=== PATIENT | female | born 1955 | race Caucasian/White ===

== ENCOUNTER 2016-09-12 04:20 | Inpatient (IN) | payer BC ==
[2016-09-11 16:01] LABS: BLOOD UREA NITROGEN 27 mg/dL (7-18)
[2016-09-11 16:04] LABS: ASPARTATE AMINO TRANSFERASE 16 U/L (15-37)
[~2016-09-12] VITALS: Ht 154.9 cm; Wt 76.5 kg
[~2016-09-12 04:20] MED LIST: ACET-76 PO; AMIT10TA PO; AMLO5TAB4 PO; ASPI-496 PO; CHOL200024 PO; CLOP75TA22 PO; HYDR25TA6 PO; ISOS60TA36 PO; LISI-170 PO; METF10002 PO; METO25TA35 PO; ROSU40TA PO
[2016-09-12] MEDS ORDERED: CHLORHEXIDINE MOUTHWASH 15 ML UDC MM SCH (04:30)
[2016-09-12] MEDS ORDERED: DO NOT GIVE XX SCH (04:30)
[2016-09-12 04:45] VITALS: BP_SYST 114; BP_SYST 117; BP_DIAS 75; BP_DIAS 85
[2016-09-12] MEDS ORDERED: METOPROLOL TARTRATE 25 MG TABLET PO ONE (05:00)
[2016-09-12 05:23] VITALS: BP_SYST 114; BP_SYST 117; BP_DIAS 75; BP_DIAS 85
[2016-09-12] MEDS ORDERED: INSULIN ASPART 100 UNITS/ML, PEN SQ-INSULIN SCH (06:00)
[2016-09-12] MEDS ORDERED: MIDAZOLAM 10MG/2 ML ONE (06:38)
[2016-09-12] MEDS ORDERED: FENTANYL PF 1000 MCG/20ML ONE (06:38)
[2016-09-12 06:46] VITALS: BP 98/63
[2016-09-12] MEDS ORDERED: CEFUROXIME 1.5 GM in SODIUM CHLORIDE 0.9% 50 ML IVPB PRN (07:30)
[2016-09-12] MEDS ORDERED: ALBUMIN HUMAN 5% 500 ML IV ONE (07:30)
[2016-09-12] MEDS ORDERED: POTASSIUM CHLORIDE 80 MEQ, SODIUM BICARBONATE 8.4% 10 MEQ, MAGNESIUM SULFATE 0.5 GM, LI... IV PRN (07:30)
[2016-09-12] MEDS ORDERED: PHENYLEPHRINE 10 MG in SODIUM CHLORIDE 0.9% 249 ML IV PRN ×2 (07:30→12:34)
[2016-09-12] MEDS ORDERED: REGULAR INSULIN 62.5 UNITS in SODIUM CHLORIDE 0.9% 249.375 ML IV PRN ×2 (07:30→12:34)
[2016-09-12] MEDS ORDERED: MANNITOL PMX 20% 500 ML IVPB PRN (07:30)
[2016-09-12] MEDS ORDERED: DEXMEDETOMIDINE 200 MCG in SODIUM CHLORIDE 0.9% 48 ML IV SCH (07:30)
[2016-09-12] MEDS ORDERED: EPINEPHRINE 2 MG in SODIUM CHLORIDE 0.9% 248 ML IV SCH (07:30)
[2016-09-12] MEDS ORDERED: VANCOMYCIN 1,100 MG in SODIUM CHLORIDE 0.9% 250 ML IV PRN (07:30)
[2016-09-12] MEDS ORDERED: PROPOFOL 10 MG/ML, 20ML ONE (08:12)
[2016-09-12] MEDS ORDERED: ROCURONIUM 10 MG/ML ONE (08:12)
[2016-09-12] MEDS ORDERED: MUPIROCIN OINT 2%, 22GM TP SCH (09:00)
[2016-09-12] MEDS: SODIUM CHLORIDE FLUSH 10ML SYR IVF SCH ×3 (09:00→21:13)
[2016-09-12] MEDS ORDERED: FENTANYL PF 250 MCG/5ML ONE ×2 (09:16→09:30)
[2016-09-12] MEDS ORDERED: SODIUM CHLORIDE 0.9% IVPB ONE (12:00)
[2016-09-12] MEDS ORDERED: DESMOPRESSIN IVPB ONE (12:00)
[2016-09-12] MEDS ORDERED: DOPAMINE 400 MG in SODIUM CHLORIDE 0.9% 240 ML IV PRN (12:34)
[2016-09-12] MEDS ORDERED: SODIUM CHLORIDE 0.9% 1,000 ML IV ONE (12:34)
[2016-09-12] MEDS ORDERED: NITROGLYCERIN/D5W PMX 250 ML IV PRN (12:34)
[2016-09-12] MEDS ORDERED: DEXMEDETOMIDINE 200 MCG in SODIUM CHLORIDE 0.9% 48 ML IV PRN (12:34)
[2016-09-12] MEDS ORDERED: SODIUM CHLORIDE 0.9% 1,000 ML IV PRN (12:34)
[2016-09-12] MEDS ORDERED: BISACODYL 5 MG EC TABLET PO PRN (13:00)
[2016-09-12] MEDS ORDERED: ACETAMINOPHEN 325 MG TABLET PO PRN (13:00)
[2016-09-12] MEDS ORDERED: GLUCAGON 1 MG IM PRN (13:00)
[2016-09-12] MEDS ORDERED: MIDAZOLAM 1 MG/ML, 5ML IVPush PRN (13:00)
[2016-09-12] MEDS ORDERED: BISACODYL 10 MG SUPP PR PRN (13:00)
[2016-09-12] MEDS ORDERED: DEXTROSE 50%, 50ML SYRINGE IVPush PRN (13:00)
[2016-09-12] MEDS ORDERED: VANCOMYCIN 1,100 MG in SODIUM CHLORIDE 0.9% 250 ML IVPB SCH (13:00)
[2016-09-12] MEDS ORDERED: MEPERIDINE/PF 25MG/0.5ML IVPush PRN (13:00)
[2016-09-12] MEDS ORDERED: LACTATED RINGERS 500 ML IVBOLUS PRN (13:00)
[2016-09-12] MEDS: KSCALE TO 4.5 IV SCH ×2 (13:00→19:00)
[2016-09-12] MEDS ORDERED: PROCHLORPERAZINE 5 MG/ML, 2ML IVPush PRN (13:00)
[2016-09-12] MEDS ORDERED: ACETAMINOPHEN 650 MG SUPP PR PRN (13:00)
[2016-09-12] MEDS ORDERED: SODIUM BICARB 8.4%, 50ML SYRINGE IV PRN (13:00)
[2016-09-12] MEDS ORDERED: morphine SULFATE 10 MG/ML, 1ML IVPush PRN (13:00)
[2016-09-12] MEDS ORDERED: CEFUROXIME 1.5 GM in SODIUM CHLORIDE 0.9% 50 ML IVPB SCH (13:00)
[2016-09-12] MEDS ORDERED: DEXTROSE 4 GM TAB.CHEW PO PRN (13:00)
[2016-09-12] MEDS ORDERED: SODIUM BICARB 8.4%, 50ML SYRINGE ONE (13:03)
[2016-09-12] MEDS ORDERED: PROTAMINE SULFATE 10 MG/ML, 25ML ONE (13:03)
[2016-09-12] MEDS ORDERED: AMINOCAPROIC ACID 250 MG/ML, 20ML ONE (13:04)
[2016-09-12] MEDS ORDERED: SODIUM BICARBONATE 4.2%, 5ML ONE (13:04)
[2016-09-12] MEDS ORDERED: HEPARIN 1,000 UNITS/ML, 30ML ONE (13:04)
[2016-09-12] MEDS ORDERED: CALCIUM CHLORIDE 10%, 10ML SYR ONE (13:04)
[2016-09-12] MEDS ORDERED: ALBUMIN HUMAN 25% 50 ML ONE (13:04)
[2016-09-12] MEDS ORDERED: HEPARIN 1,000 UNITS/ML, 10ML ONE (13:04)
[2016-09-12 13:07] LABS: ABG COLLECTION SITE ARTERIAL LINE
[2016-09-12] MEDS ORDERED: PAPAVERINE 30 MG/ML, 2ML ONE (13:08)
[2016-09-12] MEDS ORDERED: LIDOCAINE 2% 100MG/5ML SYRINGE ONE (13:08)
[2016-09-12] MEDS ORDERED: methylPREDNISolone SOD SUCC 125 MG/2 ML ONE (13:08)
[2016-09-12] MEDS ORDERED: POTASSIUM CHLORIDE PMX 100 ML IV ONE (13:30)
[2016-09-12] MEDS: MAGNESIUM SULFATE 1 GM in SODIUM CHLORIDE 0.9% 50 ML IVPB SCH (13:36)
[2016-09-12] MEDS ORDERED: SODIUM CHLORIDE 0.9% 1,000ML IVBOLUS PRN (18:00)
[2016-09-12] MEDS ORDERED: ONDANSETRON 2MG/ML, 2ML IVPush ONE (18:30)
[2016-09-12] MEDS: VANCOMYCIN 1,100 MG in SODIUM CHLORIDE 0.9% 250 ML IVPB SCH (19:32)
[2016-09-12] MEDS: OXYcodone IR 5MG TABLET PO PRN (19:32)
[2016-09-12] MEDS: ONDANSETRON 2MG/ML, 2ML IVPush PRN (19:33)
[2016-09-12] MEDS: MUPIROCIN OINT 2%, 22GM NAS SCH (19:39)
[2016-09-12] MEDS: CEFUROXIME 1.5 GM in SODIUM CHLORIDE 0.9% 50 ML IVPB SCH (20:30)
[2016-09-12] MEDS: INSULIN ASPART 100 UNITS/ML, PEN SQ-INSULIN PRN (21:11)
[2016-09-12] MEDS: DOCUSATE 100 MG CAPSULE PO SCH (21:15)
[2016-09-13] MEDS: KSCALE TO 4.5 IV SCH ×4 (01:00→19:00)
[2016-09-13] MEDS: EPINEPHRINE 2 MG in SODIUM CHLORIDE 0.9% 248 ML IV PRN ×2 (02:02→10:15)
[2016-09-13] MEDS: OXYcodone IR 5MG TABLET PO PRN ×3 (02:40→18:01)
[2016-09-13] MEDS ORDERED: POTASSIUM CHLORIDE 30 MEQ in SODIUM CHLORIDE 0.9% 100 ML IV ONE (03:00)
[2016-09-13 05:11] LABS: ABG COLLECTION SITE NOT DOCUMENTED
[2016-09-13 05:46] LABS: BLOOD UREA NITROGEN 24 mg/dL (7-18)
[2016-09-13] MEDS ORDERED: POTASSIUM CHLORIDE PMX 100 ML IV ONE (07:00)
[2016-09-13] MEDS: ONDANSETRON 2MG/ML, 2ML IVPush PRN ×2 (08:15→13:33)
[2016-09-13] MEDS: CEFUROXIME 1.5 GM in SODIUM CHLORIDE 0.9% 50 ML IVPB SCH (08:18)
[2016-09-13] MEDS: SODIUM CHLORIDE FLUSH 10ML SYR IVF SCH ×4 (08:19→21:11)
[2016-09-13] MEDS: PANTOPRAZOLE 40 MG IV IVPush SCH (08:19)
[2016-09-13] MEDS: VANCOMYCIN 1,100 MG in SODIUM CHLORIDE 0.9% 250 ML IVPB SCH (08:19)
[2016-09-13] MEDS ORDERED: CALCIUM CHLORIDE 13.6 MEQ in SODIUM CHLORIDE 0.9% 100 ML IV ONE (10:00)
[2016-09-13] MEDS: INSULIN ASPART 100 UNITS/ML, PEN SQ-INSULIN PRN ×4 (10:21→14:20)
[2016-09-13] MEDS: DOCUSATE 100 MG CAPSULE PO SCH ×2 (12:54→21:11)
[2016-09-13] MEDS: MUPIROCIN OINT 2%, 22GM NAS SCH ×2 (12:54→21:11)
[2016-09-13] MEDS: ASPIRIN 81 MG TABLET EC PO SCH (12:54)
[2016-09-13] MEDS: CHLORHEXIDINE MOUTHWASH 15 ML UDC MM SCH (13:07)
[2016-09-13] MEDS: MAGNESIUM SULFATE 1 GM in SODIUM CHLORIDE 0.9% 50 ML IVPB SCH (13:08)
[2016-09-13] MEDS ORDERED: ALBUMIN HUMAN 5% 500 ML IV ONE (16:00)
[2016-09-13] MEDS: METOPROLOL TARTRATE 25 MG TABLET PO/NG SCH (21:00)
[2016-09-14] MEDS: KSCALE TO 4.5 IV SCH ×2 (01:00→07:00)
[2016-09-14] MEDS: CHLORHEXIDINE MOUTHWASH 15 ML UDC MM SCH ×2 (01:00→13:08)
[2016-09-14 04:18] LABS: ABG COLLECTION SITE RIGHT BRACHIAL
[2016-09-14] MEDS: HYDROcodone/APAP 10/325 MG TABLET PO PRN ×3 (04:31→20:30)
[2016-09-14 05:04] LABS: BLOOD UREA NITROGEN 24 mg/dL (7-18)
[2016-09-14] MEDS: ONDANSETRON 2MG/ML, 2ML IVPush PRN ×2 (06:18→12:04)
[2016-09-14] MEDS ORDERED: MAGNESIUM HYDROXIDE 8%, 30ML UDC PO PRN (07:30)
[2016-09-14] MEDS: SODIUM CHLORIDE FLUSH 10ML SYR IVF SCH ×5 (08:34→20:33)
[2016-09-14] MEDS: ENOXAPARIN 40 MG/0.4 ML SQ SCH (08:35)
[2016-09-14] MEDS: ASPIRIN 81 MG TABLET EC PO SCH (08:35)
[2016-09-14] MEDS: METOPROLOL TARTRATE 25 MG TABLET PO/NG SCH ×2 (08:35→20:31)
[2016-09-14] MEDS: metFORMIN 500 MG TABLET PO SCH (08:35)
[2016-09-14] MEDS: MUPIROCIN OINT 2%, 22GM NAS SCH ×2 (08:35→20:33)
[2016-09-14] MEDS: DOCUSATE 100 MG CAPSULE PO SCH ×2 (08:35→20:31)
[2016-09-14] MEDS: PANTOPRAZOLE 40 MG IV IVPush SCH (08:35)
[2016-09-14] MEDS ORDERED: METOPROLOL TARTRATE 25 MG TABLET PO/NG SCH (09:00)
[2016-09-14 09:05] VITALS: BP 104/56
[2016-09-14 09:15] VITALS: BP 88/49
[2016-09-14 09:45] VITALS: BP 102/59
[2016-09-14] MEDS: INSULIN ASPART 100 UNITS/ML, PEN SQ-INSULIN SCH ×3 (12:04→20:48)
[2016-09-14 12:26] VITALS: BP 123/73
[2016-09-14] MEDS: MAGNESIUM SULFATE 1 GM in SODIUM CHLORIDE 0.9% 50 ML IVPB SCH (13:11)
[2016-09-14 20:21] VITALS: BP 120/83
[2016-09-14] MEDS: AMITRIPTYLINE 10 MG TABLET PO SCH (20:30)
[2016-09-14] MEDS: ATORVASTATIN 80 MG TABLET PO SCH (20:30)
[2016-09-14] MEDS ORDERED: DEXTROSE 4 GM TAB.CHEW PO PRN (21:00)
[2016-09-14] MEDS ORDERED: DEXTROSE 50%, 50ML SYRINGE IVPush PRN (21:00)
[2016-09-14] MEDS ORDERED: ACETAMINOPHEN 650 MG SUPP PR PRN (21:00)
[2016-09-14] MEDS ORDERED: SODIUM CHLORIDE FLUSH 10ML SYR IVF SCH (21:00)
[2016-09-14] MEDS ORDERED: BISACODYL 10 MG SUPP PR PRN (21:00)
[2016-09-14] MEDS ORDERED: GLUCAGON 1 MG IM PRN (21:00)
[2016-09-14] MEDS ORDERED: BISACODYL 5 MG EC TABLET PO PRN (21:00)
[2016-09-15 03:08] VITALS: BP 128/83
[2016-09-15] MEDS: HYDROcodone/APAP 10/325 MG TABLET PO PRN ×4 (03:23→19:21)
[2016-09-15] MEDS: CHLORHEXIDINE MOUTHWASH 15 ML UDC MM SCH (03:23)
[2016-09-15 03:58] LABS: BLOOD UREA NITROGEN 26 mg/dL (7-18)
[2016-09-15] MEDS: INSULIN ASPART 100 UNITS/ML, PEN SQ-INSULIN SCH ×2 (07:00→11:00)
[2016-09-15 08:00] VITALS: BP 126/77
[2016-09-15] MEDS: SODIUM CHLORIDE FLUSH 10ML SYR IVF SCH ×4 (09:00→19:17)
[2016-09-15] MEDS ORDERED: CLOPIDOGREL 75 MG TABLET PO SCH (09:00)
[2016-09-15] MEDS ORDERED: POTASSIUM CHLORIDE 10 MEQ TABLET.ER PO SCH (09:00)
[2016-09-15] MEDS: MUPIROCIN OINT 2%, 22GM NAS SCH ×2 (09:00→19:17)
[2016-09-15] MEDS: PANTOPRAZOLE 40 MG IV IVPush SCH (09:00)
[2016-09-15] MEDS ORDERED: FUROSEMIDE 20 MG/2 ML IV SCH (09:00)
[2016-09-15] MEDS: FUROSEMIDE 20 MG/2 ML IV SCH ×2 (09:27→17:25)
[2016-09-15] MEDS: METOPROLOL TARTRATE 25 MG TABLET PO/NG SCH ×2 (09:28→19:21)
[2016-09-15] MEDS: CLOPIDOGREL 75 MG TABLET PO SCH (09:28)
[2016-09-15] MEDS: POTASSIUM CHLORIDE 10 MEQ TABLET.ER PO SCH ×2 (09:28→17:25)
[2016-09-15] MEDS: metFORMIN 500 MG TABLET PO SCH (09:28)
[2016-09-15] MEDS: ENOXAPARIN 40 MG/0.4 ML SQ SCH (09:28)
[2016-09-15] MEDS: ASPIRIN 81 MG TABLET EC PO SCH (09:28)
[2016-09-15] MEDS: DOCUSATE 100 MG CAPSULE PO SCH ×2 (09:29→19:17)
[2016-09-15 13:17] VITALS: BP 127/83
[2016-09-15] MEDS ORDERED: HYDROcodone/APAP 5/325 TABLET ONE (15:53)
[2016-09-15 19:15] VITALS: BP 111/78
[2016-09-15] MEDS: ATORVASTATIN 80 MG TABLET PO SCH (19:21)
[2016-09-15] MEDS: AMITRIPTYLINE 10 MG TABLET PO SCH (19:21)
[2016-09-16 01:26] VITALS: BP 127/83
[2016-09-16] MEDS: HYDROcodone/APAP 10/325 MG TABLET PO PRN ×3 (01:32→11:07)
[2016-09-16 05:36] LABS: BLOOD UREA NITROGEN 22 mg/dL (7-18)
[2016-09-16] MEDS ORDERED: PANTOPROZOLE 40MG TABLET PO SCH (07:30)
[2016-09-16] MEDS ORDERED: DOCU-30 PO (07:42)
[2016-09-16] MEDS ORDERED: FURO-93 PO (07:42)
[2016-09-16] MEDS ORDERED: METO25TA35 PO/NG (07:42)
[2016-09-16] MEDS ORDERED: ASPI-621 PO (07:42)
[2016-09-16] MEDS ORDERED: POTA10TA5 PO (07:42)
[2016-09-16] MEDS ORDERED: LISI5TAB7 PO (07:45)
[2016-09-16 08:09] VITALS: BP 124/84
[2016-09-16] MEDS: POTASSIUM CHLORIDE 10 MEQ TABLET.ER PO SCH (08:10)
[2016-09-16] MEDS: metFORMIN 500 MG TABLET PO SCH (08:10)
[2016-09-16] MEDS: DOCUSATE 100 MG CAPSULE PO SCH (08:11)
[2016-09-16] MEDS: CLOPIDOGREL 75 MG TABLET PO SCH (08:11)
[2016-09-16] MEDS: ASPIRIN 81 MG TABLET EC PO SCH (08:11)
[2016-09-16] MEDS: FUROSEMIDE 20 MG/2 ML IV SCH (08:11)
[2016-09-16] MEDS: MUPIROCIN OINT 2%, 22GM NAS SCH (08:11)
[2016-09-16] MEDS: METOPROLOL TARTRATE 25 MG TABLET PO/NG SCH (08:11)
[2016-09-16] MEDS: SODIUM CHLORIDE FLUSH 10ML SYR IVF SCH (08:11)
[2016-09-16] MEDS: ENOXAPARIN 40 MG/0.4 ML SQ SCH (08:12)
[2016-09-16] MEDS ORDERED: LISINOPRIL 5 MG TABLET PO SCH (09:00)
[2016-09-16] MEDS ORDERED: HYDR-3240 PO (11:34)
== END 2016-09-16 12:15 | disposition home health service (06) | DRG 236 ==
LOC: 5SO 04:20 → CCU 08:08 → 5SO 09-14 12:09 → DCLOUNGE 09-16 11:25
PROVIDERS: ADMIT Thoracic Surgery (Cardiothoracic Vascular Surgery); ATTEND Thoracic Surgery (Cardiothoracic Vascular Surgery)
PROC: 02100Z9 Bypass Coronary Artery, One Artery from Left Internal Mammary, Open Approach (ICD-10-PCS; 2016-09-12)
PROC: 06BQ4ZZ Excision of Left Saphenous Vein, Percutaneous Endoscopic Approach (ICD-10-PCS; 2016-09-12)
PROC: 06BS4ZZ (ICD-10-PCS; 2016-09-12)
PROC: 5A1221Z Performance of Cardiac Output, Continuous (ICD-10-PCS; 2016-09-12)
PROC: 30233R1 Transfusion of Nonautologous Platelets into Peripheral Vein, Percutaneous Approach (ICD-10-PCS; 2016-09-12)
PROC: 021109W Bypass Coronary Artery, Two Arteries from Aorta with Autologous Venous Tissue, Open Approach (ICD-10-PCS; principal; 2016-09-12 08:00)
PROC: 30233N1 Transfusion of Nonautologous Red Blood Cells into Peripheral Vein, Percutaneous Approach (ICD-10-PCS; 2016-09-14)
DX: I25.118 Atherosclerotic heart disease of native coronary artery with other forms of angina pectoris (principal); D68.9 Coagulation defect, unspecified; E78.00 Pure hypercholesterolemia, unspecified; E66.9 Obesity, unspecified; E78.5 Hyperlipidemia, unspecified; I10 Essential (primary) hypertension; E11.9 Type 2 diabetes mellitus without complications; Z90.49 Acquired absence of other specified parts of digestive tract; Z98.84 Bariatric surgery status; Z98.51 Tubal ligation status; Z87.891 Personal history of nicotine dependence; Z68.31 Body mass index [BMI] 31.0-31.9, adult
CPT/HCPCS: 36415; 36600; 71010; 71020; 80048; 80053; 81003; 82040; 82330; 82800; 82803; 82810; 82947; 82962; 83036; 83735; 84132; 84295; 85014; 85018; 85025; 85049; 85347; 85610; 85730; 86850; 86900; 86923; 87081; 93005; 93312; 93321; 93325; 93880; 93970; 94002; 94003; 94150; J0697; J1644; J1650; J1815; J2175; J2250; J2405; J2704; J2720; J3010; J3370; J3475; J3480; J3490; P9045; P9047; C1751; C1760; C9113; J0171; J1940; J2270; J2370; J2440; J2930; J7030; J7050; P9016; P9035

== ENCOUNTER 2018-12-09 10:10 | Day surgery (SDC) | payer OTHER ==
[~2018-12-09] VITALS: Ht 154.9 cm; Wt 63.5 kg
[~2018-12-09 10:10] MED LIST changes: +ASPI81TA45 PO; -CLOP75TA22 PO; +CLOP75TA52 PO; +DOCU-131 PO; +FURO-93 PO; +GABA300C10 PO; +HYDR-3240 PO; +LISI5TAB7 PO; +METO25TA35 PO/NG; +ONDA4TAB7 PO; +POTA10TA5 PO
[2018-12-09 10:36] VITALS: BP 119/82
[2018-12-09] MEDS ORDERED: LACTATED RINGERS 1,000 ML IV SCH (10:55)
[2018-12-09] MEDS ORDERED: GABAPENTIN 300 MG CAPSULE PO ONE (11:30)
[2018-12-09] MEDS ORDERED: SCOPOLAMINE PATCH, 1.5MG PATCH.TD72 TD ONE (11:30)
[2018-12-09] MEDS ORDERED: ACETAMINOPHEN 500 MG TABLET PO ONE (11:30)
[2018-12-09] MEDS ORDERED: FENTANYL PF 250 MCG/5ML ONE (12:06)
[2018-12-09] MEDS ORDERED: MIDAZOLAM 1 MG/ML, 2ML ONE (12:06)
[2018-12-09] MEDS ORDERED: LIDOCAINE-MPF 2% ,5ML ONE (12:07)
[2018-12-09] MEDS ORDERED: SODIUM CHLORIDE 0.9% 50 ML ONE (12:11)
[2018-12-09] MEDS ORDERED: LIDOCAINE 1%, 20ML ONE (12:11)
[2018-12-09] MEDS ORDERED: FLUORESCEIN SODIUM 500 MG/5 ML ONE (12:11)
[2018-12-09] MEDS ORDERED: PROPOFOL 50 ML ONE (12:31)
[2018-12-09] MEDS ORDERED: LIDOCAINE 1%, 20ML INFIL ONE (12:58)
[2018-12-09] MEDS ORDERED: FENTANYL PF 100 MCG/2ML IV PRN (13:00)
[2018-12-09] MEDS ORDERED: OXYcodone 5 MG/5 ML ORAL.SOL UDC PO PRN (13:00)
[2018-12-09] MEDS ORDERED: MEPERIDINE/PF 25MG/ML,1ML IVPush PRN (13:00)
[2018-12-09] MEDS ORDERED: hydrALAzine 20 MG/ML, 1ML IV PRN (13:00)
[2018-12-09] MEDS ORDERED: MIDAZOLAM 1 MG/ML, 2ML IV PRN (13:00)
[2018-12-09] MEDS ORDERED: HYDROmorphone 2 MG/ML, 1ML IVPush PRN (13:00)
[2018-12-09] MEDS ORDERED: METOPROLOL 1 MG/ML, 5ML IV PRN (13:00)
[2018-12-09] MEDS ORDERED: ALBUTEROL/IPRATROPIUM 2.5MG/0.5MG, 3 ML NPPB PRN (13:00)
[2018-12-09] MEDS ORDERED: PROMETHAZINE 25 MG/ML, 1ML IV PRN (13:00)
[2018-12-09] MEDS ORDERED: THROMBIN 5,000 UNIT VIAL TP ONE ×2 (13:03→13:11)
[2018-12-09] MEDS ORDERED: CEFAZOLIN 1,000 MG ONE (14:10)
[2018-12-09] MEDS ORDERED: DEXAMETHASONE 4 MG/ML, 1ML ONE (14:10)
[2018-12-09] MEDS ORDERED: PROPOFOL 10 MG/ML, 20ML ONE (14:10)
[2018-12-09] MEDS ORDERED: ONDANSETRON 2MG/ML, 2ML ONE (14:10)
[2018-12-09] MEDS ORDERED: ROCURONIUM 10MG/ML,5ML ONE (16:09)
[2018-12-09] MEDS ORDERED: PHENYLEPHRINE 10 MG/ML ONE (16:09)
[2018-12-09] MEDS ORDERED: SUCCINYLCHOLINE 20 MG/ML, 10ML ONE (16:09)
== END 2018-12-09 15:05 | disposition home or self-care (01) ==
LOC: OUT 10:10
PROVIDERS: ATTEND Obstetrics & Gynecology Gynecology
DX: N81.10 Cystocele, unspecified (principal); N81.6 Rectocele; N95.0 Postmenopausal bleeding; I25.10 Atherosclerotic heart disease of native coronary artery without angina pectoris; E11.22 Type 2 diabetes mellitus with diabetic chronic kidney disease; I12.9 Hypertensive chronic kidney disease with stage 1 through stage 4 chronic kidney disease, or unspecified chronic kidney disease; N18.3 Chronic kidney disease, stage 3 (moderate); E78.00 Pure hypercholesterolemia, unspecified; Z79.84 Long term (current) use of oral hypoglycemic drugs; Z79.02 Long term (current) use of antithrombotics/antiplatelets; Z79.899 Other long term (current) drug therapy; Z88.5 Allergy status to narcotic agent; Z95.5 Presence of coronary angioplasty implant and graft; Z98.84 Bariatric surgery status; Z98.890 Other specified postprocedural states; Z83.3 Family history of diabetes mellitus; Z82.49 Family history of ischemic heart disease and other diseases of the circulatory system
CPT/HCPCS: 57260; 82962; 88305; J0330; J0690; J1100; J2250; J2370; J2405; J2704; J3010; J7120